=== PATIENT | male | born 1955 | race Caucasian/White ===

== ENCOUNTER 2019-04-04 07:17 | Inpatient (IN) | payer OTHER ==
[~2019-04-04] VITALS: Ht 170.2 cm; Wt 74.3 kg
[2019-04-04 07:23] VITALS: BP 146/85
[2019-04-04] MEDS ORDERED: PROTONIX40 M1 PO (07:29)
[2019-04-04] MEDS ORDERED: AMLODIPINE BESY10 MG PO (07:29)
[2019-04-04] MEDS ORDERED: ACCUPRIL40 MG PO (07:29)
[2019-04-04] MEDS ORDERED: FLOMAX0.4 MG PO (07:29)
[2019-04-04] MEDS ORDERED: ZANTAC 150MG T150 MG (07:30)
[2019-04-04] MEDS ORDERED: PRESSOR VISION PO (07:30)
[2019-04-04] MEDS ORDERED: XANAX1 MG PO (07:30)
[2019-04-04] MEDS ORDERED: ZOCOR20 MG PO (07:30)
[2019-04-04] MEDS ORDERED: ASPIR 8181 M1 PO (07:31)
[2019-04-04] MEDS ORDERED: AREDS PO (07:31)
[2019-04-04 07:54] LABS: ABSOLUTE LYMPHOCYTES 1.1 thou/uL (0.8-5.3); ABSOLUTE MONOCYTES 1.1 thou/uL (0.0-1.2); ABSOLUTE NEUTROPHILS 12.6 thou/uL (1.6-8.1); BASOPHILS 0.2 %; EOSINOPHILS 0.3 %; HEMATOCRIT 50.6 % (42.0-52.0); HEMOGLOBIN 17.1 gm/dL (14.0-18.0); LYMPHOCYTES 7.4 %; MCH 28.6 pg (26.0-34.0); MCHC 33.9 g/dL (28.0-37.0); MCV 84.5 fL (80.0-100.0); MONOCYTES 7.3 %; MPV 7.8 fl. (7.2-11.1); NUCLEATED RBCS 0 /100WBC; PLATELET COUNT* 356 thou/uL (150-400); POLYS 84.8 %; RBC 5.99 mil/uL (4.50-6.00); RDW-CV 13.4 % (10.5-14.5); WBC 14.8 thou/uL (4.0-11.0)
[2019-04-04 08:33] LABS: ANION GAP 10 mmol/L (7-16); BUN 32 mg/dL (7-18); CALCIUM 9.7 mg/dL (8.5-10.1); CHLORIDE 96 mmol/L (98-107); CO2 29 mmol/L (21-32); CREATININE 1.2 mg/dL (0.6-1.3); GLUCOSE 158 mg/dL (70-99); POTASSIUM 4.2 mmol/L (3.5-5.1); SODIUM 135 mmol/L (136-145)
[2019-04-04 08:44] LABS: ALBUMIN 4.5 g/dL (3.4-5.0); ALKALINE PHOSPHATASE 49 U/L (46-116); LIPASE 250 U/L (73-393); SGOT 27 U/L (15-37); SGPT 78 U/L (30-65); TOTAL BILIRUBIN 1.7 mg/dL (<0.1-1.0); TOTAL PROTEIN 7.8 g/dL (6.4-8.2); TROPONIN-I LEVEL <0.06 ng/mL (<0.06)
[2019-04-04 09:55] LABS: URINE BILIRUBIN NEGATIVE (Negative); URINE BLOOD 1+ (Negative); URINE CLARITY CLEAR; URINE COLOR YELLOW; URINE GLUCOSE-RANDOM NEGATIVE (Negative); URINE KETONES 1+ (Negative); URINE LEUKOCYTES-REFLEX NEGATIVE (Negative); URINE NITRITE-REFLEX NEGATIVE (Negative); URINE PROTEIN NEGATIVE (Negative); URINE SPECIFIC GRAVITY 1.015 (1.005-1.030); URINE UROBILINOGEN 0.2 E.U./dl (0.2-1.0)
[2019-04-04 10:01] LABS: BACTERIA-REFLEX 1-9 Few /HPF (None Seen); MUCUS 4-6 Moderate strn/LPF (None Seen); SQUAMOUS 0-3 Few /LPF (0-3); URINE RBC 3-10 Few /HPF (0-2); URINE WBC-REFLEX 0-5 Rare /HPF (0-5)
[2019-04-04 10:02] LABS: CASTS None Seen /LPF (None Seen); CRYSTALS None Seen /LPF (None Seen)
--- NOTE | 2019-04-04 10:39 | NUR ---
REPORT GIVEN TO JUDY CHARLES WHO IS TO ASSUME PT CARE INPATIENT NURSE.
[2019-04-04 10:40] VITALS: BP 128/77
[2019-04-04 10:45] VITALS: BP 141/74
--- NOTE | 2019-04-04 12:05 | EKG ---
[place] [address] ELECTROCARDIOGRAM REPORT Name: ALEXIS CARLIN Room: [address] ADM IN R.#: [id number] Admission: 04/04/19 Attend Phys: Melissa Sánchez MD Discharge: Date of : 53 Report #: [id number] THIS REPORT FOR: //name// ED Test Date: 2019-04-04 Test Time: 08:06:51 Pat Name: ALEXIS CARLIN Department: Room: [facility] Gender: M Director Weights And Measures: : 1955 Requested By: Obdulio Miller Order Number: [id number] MD: Toan Mayberry Measurements Intervals [place] Rate: 77 P: 6 AK: 137 QRS: -16 QRSD: 97 T: 27 QT: 402 QTc: 455 Interpretive Statements Sinus rhythm Probable left atrial enlargement Inferior infarct, old Compared to ECG 10/10/2008 20:03:39 No significant changes Electronically Signed On 04-04-2019 12:04:54 CDT by Toan Mayberry [email or web address] <ELECTRONICALLY SIGNED> By: Toan Mayberry MD, [facility] 04/04/19 1204 08 5 Toan Mayberry MD, [facility] /EPI
[2019-04-04 16:00] VITALS: BP 120/67
--- NOTE | 2019-04-04 18:24 | NUR ---
PATIENT ADMITTED TO ROOM 113 THIS AM FROM ER. ALERT AND ORIENTED X 4. UP AD TIARRA. RATING RIGHT HIP/BACK PAIN AN 8/10. PRN TRAMADOL AND MORPHINE GIVEN ORDERED, GOOD RELIEF NOTED. NO SKIN BREAKDOWN. IVF INFUSING. SURGERY CONSULTED, DR. CUEVAS SAW PATIENT THIS AFTERNOON. PATIENT REMAINS NPO EXCEPT SIPS WITH MEDS. ABD AND CXR TOMORROW. ORIENTED TO CALL LIGHT. CALL LIGHT WITHIN REACH, WILL CONTINUE TO MONITOR.
[2019-04-04 21:30] VITALS: BP 136/70
[2019-04-05 04:21] LABS: ABSOLUTE EOSINOPHILS 0.1 thou/uL (0.0-0.7); ABSOLUTE LYMPHOCYTES 1.3 thou/uL (0.8-5.3); ABSOLUTE MONOCYTES 0.8 thou/uL (0.0-1.2); BASOPHILS 0.3 %; EOSINOPHILS 1.1 %; HEMATOCRIT 42.3 % (42.0-52.0); LYMPHOCYTES 15.6 %; MCH 28.8 pg (26.0-34.0); MCHC 33.7 g/dL (28.0-37.0); MCV 85.4 fL (80.0-100.0); MONOCYTES 10.2 %; MPV 7.6 fl. (7.2-11.1); NUCLEATED RBCS 0 /100WBC; PLATELET COUNT* 296 thou/uL (150-400); POLYS 72.8 %; RBC 4.95 mil/uL (4.50-6.00); RDW-CV 13.5 % (10.5-14.5); WBC 8.3 thou/uL (4.0-11.0)
[2019-04-05 04:25] LABS: HEMOGLOBIN 14.3 gm/dL (14.0-18.0)
--- NOTE | 2019-04-05 04:45 | NUR ---
PT ALERT AND ORIENTED. VITALS STABLE RA. MEDS GIVEN ORDERED. PRN TRAMADOL GIVEN FOR BACK/HIP PAIN PER PT REQUEST. NO NAUSEA OR VOMITING THIS SHIFT. NPO AT MIDNIGHT. HOURLY ROUNDING COMPLETED. WILL CONTINUE TO MONITOR.
[2019-04-05 05:15] LABS: ALBUMIN 3.4 g/dL (3.4-5.0); CALCIUM 8.1 mg/dL (8.5-10.1); CREATININE 0.8 mg/dL (0.6-1.3); MAGNESIUM 2.2 mg/dL (1.8-2.4); POTASSIUM 3.8 mmol/L (3.5-5.1); TOTAL BILIRUBIN 1.1 mg/dL (<0.1-1.0); TOTAL PROTEIN 6.1 g/dL (6.4-8.2)
[2019-04-05 08:50] VITALS: BP 144/72
--- NOTE | 2019-04-05 14:34 | NUR ---
INITIAL ASSESSMENT: Pt evaluated for d/c planning needs. Reviewed chart. Pt is alert and oriented. Pt lives in house and was independent with ADL's prior to admission to the hospital. Pt has shower bench, and no other DME. pt has not had home health in the past. Pt plans on returning home on d/c from hospital. Will remain available to assist as needed.
[2019-04-05 16:30] VITALS: BP 124/71
--- NOTE | 2019-04-05 19:00 | NUR ---
PATIENT PLEASANT AND COOPERATIVE THIS SHIFT. PATIENT STATES HAVING A FORMED SM BM THIS AM AND 2 MORE LIQUID STOOLS THIS PM. INDEP IN RM, STEADY GAIT. IV FLUIDS INFUSING W/O DIFF. CONTINUED RT HIP/BACK PAIN. SEE NOV. NPO X MEDS THRU SHIFT.
[2019-04-05 20:33] VITALS: BP 131/75
[2019-04-06 04:07] LABS: CALCIUM 8.2 mg/dL (8.5-10.1); CREATININE 0.8 mg/dL (0.6-1.3); POTASSIUM 3.7 mmol/L (3.5-5.1)
--- NOTE | 2019-04-06 05:45 | NUR ---
PT SLEPT OFF AND ON OVERNIGHT. REQUESTING PAIN MED FOR CO R LOW HIP AND BACK PAIN, WELL SLEEP AID. PO AND IV PAIN MED GIVEN WITH FAIR RESULTS. NPO EXCEPT SIPS WITH MEDS, PT ANXIOUS TO GET DIET ADVANCED. NO N/V OVERNIGHT. AM LABS, TO HAVE ABD XRAY TODAY. NO STOOLS OVERNIGHT. ABLE TO USE CALL LITE AND MAKE NEED KNOWN.RFA IVF INFUSING PER PUMP.
[2019-04-06 07:26] VITALS: BP 101/58
[2019-04-06 16:30] VITALS: BP 123/70
--- NOTE | 2019-04-06 18:43 | NUR ---
PT A&Ox4. VITALS STABLE. PAIN CONTROLLED WITH FLEXERIL AND TRAMADOL. DENIED NAUSEA. UP AD TIARRA. IV PATENT. BM TODAY. CALL LIGHT WITHIN REACH. WILL CONTINUE TO MONITOR.
[2019-04-06 19:45] VITALS: BP 115/62
[2019-04-07 04:22] LABS: CALCIUM 7.8 mg/dL (8.5-10.1); CREATININE 0.9 mg/dL (0.6-1.3); POTASSIUM 4.1 mmol/L (3.5-5.1)
--- NOTE | 2019-04-07 05:20 | NUR ---
PT SLEPT ON AND OFF THIS SHIFT. ASSESSMENT DOCUMENTED. MEDS GIVEN PER E-MAR. IV PATENT, FLUIDS INFUSING. PT STATES HE HAS HAD SEVERAL BOWEL MOVEMENTS. PAIN MEDS GIVEN PER E-MAR WITH SOME RELIEF. WILL CONTINUE WITH PLAN OF CARE.
[2019-04-07 08:45] VITALS: BP 134/76
[2019-04-07] MEDS ORDERED: GABAPENTIN 100100 MG PO (08:46)
[2019-04-07] MEDS ORDERED: CYCLOBENZAPRINE10 MG PO (08:46)
[2019-04-07 13:23] VITALS: BP 134/76
[2019-04-07 15:06] VITALS: BP 134/76
--- NOTE | 2019-04-07 15:35 | NUR ---
PATIENT DISCHARGED FROM UNIT AT 1500. ALERT AND ORIENTED X 4. VITAL SIGNS STABLE ON ROOM AIR. UP AD TIARRA IN ROOM. TOLERATING REGULAR DIET. IV DISCONTINUED. DENIES PAIN AND NAUSEA. DISCHARGE INSTRUCTIONS, MEDICATION INFORMATION, AND SCRIPTS GIVEN TO PATIENT. LEFT WITH ALL BELONGINGS.
== END 2019-04-07 15:00 | disposition home or self-care (01) | DRG 389 ==
LOC: M.ERS 07:17 → M.TBA-ER 10:08 → M.ORTHSURG 10:08
PROVIDERS: Emergency Medicine; ADMIT Family Medicine
DX: K56.699 Other intestinal obstruction unspecified as to partial versus complete obstruction (principal); J98.11 Atelectasis; G89.29 Other chronic pain; M54.9 Dorsalgia, unspecified; M25.559 Pain in unspecified hip; K21.9 Gastro-esophageal reflux disease without esophagitis; I12.9 Hypertensive chronic kidney disease with stage 1 through stage 4 chronic kidney disease, or unspecified chronic kidney disease; E78.5 Hyperlipidemia, unspecified; N40.0 Benign prostatic hyperplasia without lower urinary tract symptoms; F41.9 Anxiety disorder, unspecified; N18.2 Chronic kidney disease, stage 2 (mild); M54.16 Radiculopathy, lumbar region; M48.062 Spinal stenosis, lumbar region with neurogenic claudication; Z86.73 Personal history of transient ischemic attack (TIA), and cerebral infarction without residual deficits; Z88.8 Allergy status to other drugs, medicaments and biological substances; Z91.041 Radiographic dye allergy status; Z79.899 Other long term (current) drug therapy; Z90.49 Acquired absence of other specified parts of digestive tract; Z90.5 Acquired absence of kidney; Z87.442 Personal history of urinary calculi; Z87.891 Personal history of nicotine dependence; Z85.820 Personal history of malignant melanoma of skin

== ENCOUNTER 2019-07-29 23:26 | Emergency (ER) | payer MEDICARE, OTHER ==
[~2019-07-29] VITALS: Ht 170.2 cm; Wt 74.8 kg
[~2019-07-29 23:26] MED LIST: ACCUPRIL40 MG PO; AMLODIPINE BESY10 MG PO; AREDS PO; ASPIR 8181 M1 PO; CYCLOBENZAPRINE10 MG PO; FLOMAX0.4 MG PO; GABAPENTIN 100100 MG PO; PRESSOR VISION PO; PROTONIX40 M1 PO; XANAX1 MG PO; ZANTAC 150MG T150 MG; ZOCOR20 MG PO
[2019-07-29] MEDS ORDERED: TRAZODONE 150150 M1 PO (23:40)
[2019-07-29] MEDS ORDERED: TRAMADOL 50 MG50 MG PO (23:40)
[2019-07-30] MEDS ORDERED: HYDROCODON-ACE1 EAC8 PO (01:43)
[2019-07-30 01:49] VITALS: BP 120/78
== END 2019-07-30 01:50 | disposition home or self-care (01) ==
LOC: M.ERS 23:26
DX: G62.9 Polyneuropathy, unspecified (principal); M54.5 Low back pain; M25.551 Pain in right hip; F41.9 Anxiety disorder, unspecified; Z90.5 Acquired absence of kidney; Z91.041 Radiographic dye allergy status; Z87.442 Personal history of urinary calculi

== ENCOUNTER 2020-07-05 15:12 | Emergency (ER) | payer MEDICARE, OTHER ==
[~2020-07-05] VITALS: Ht 170.2 cm; Wt 77.1 kg
[~2020-07-05 15:12] MED LIST changes: +HYDROCODON-ACE1 EAC8 PO; +TRAMADOL 50 MG50 MG PO; +TRAZODONE 150150 M1 PO
[2020-07-05] MEDS ORDERED: CYMBALTA60 MG PO (15:28)
[2020-07-05] MEDS ORDERED: PEPCID40 MG PO (15:28)
[2020-07-05] MEDS ORDERED: NEURONTIN600 MG PO (15:28)
[2020-07-05] MEDS ORDERED: MICARDIS40 MG PO (15:28)
[2020-07-05] MEDS ORDERED: IBU800 MG PO (15:29)
[2020-07-05 16:05] LABS: CALCIUM 8.7 mg/dL (8.5-10.1); CREATININE 0.9 mg/dL (0.6-1.3); POTASSIUM 4.1 mmol/L (3.5-5.1)
[2020-07-05] MEDS ORDERED: NORCO 5-325 TA1 EAC2 PO (16:31)
[2020-07-05] MEDS ORDERED: IBUPROFEN 800800 M1 PO (16:31)
[2020-07-05] MEDS ORDERED: FLEXERIL PO (16:31)
[2020-07-05 17:25] VITALS: BP 152/82
== END 2020-07-05 17:15 | disposition home or self-care (01) ==
LOC: M.ERS 15:12
PROVIDERS: Emergency Medicine Emergency Medical Services
DX: M54.9 Dorsalgia, unspecified (principal); M79.671 Pain in right foot; M79.651 Pain in right thigh; M79.604 Pain in right leg; M79.672 Pain in left foot; R09.89 Other specified symptoms and signs involving the circulatory and respiratory systems; Z87.442 Personal history of urinary calculi; Z79.899 Other long term (current) drug therapy; Z91.041 Radiographic dye allergy status

== ENCOUNTER 2021-07-02 14:58 | Inpatient (IN) | payer MEDICARE, OTHER ==
[~2021-07-02] VITALS: Ht 170.2 cm; Wt 77.1 kg
[~2021-07-02 14:58] MED LIST changes: +CYMBALTA60 MG PO; +FLEXERIL PO; +IBU800 MG PO; +IBUPROFEN 800800 M1 PO; +MICARDIS40 MG PO; +NEURONTIN600 MG PO; +NORCO 5-325 TA1 EAC2 PO; +PEPCID40 MG PO; -TRAZODONE 150150 M1 PO; +TRAZODONE HCL50 MG PO
[2021-07-02 15:04] VITALS: BP 163/99
[2021-07-02] MEDS ORDERED: TRAMADOL 50 MG50 MG PO (15:08)
[2021-07-02] MEDS ORDERED: [UNRECOGNIZED DRUG - OTHER] (15:08)
[2021-07-02 17:40] LABS: ABSOLUTE LYMPHOCYTES 0.6 thou/uL (0.8-5.3); ABSOLUTE MONOCYTES 0.7 thou/uL (0.0-1.2); ABSOLUTE NEUTROPHILS 7.1 thou/uL (1.6-8.1); BASOPHILS 0.4 %; EOSINOPHILS 0.5 %; HEMATOCRIT 44.9 % (42.0-52.0); HEMOGLOBIN 15.1 gm/dL (14.0-18.0); MCH 28.4 pg (26.0-34.0); MCHC 33.6 g/dL (28.0-37.0); MCV 84.7 fL (80.0-100.0); MONOCYTES 8.2 %; MPV 7.5 fl. (7.2-11.1); NUCLEATED RBCS 0 /100WBC; PLATELET COUNT* 329 thou/uL (150-400); POLYS 83.9 %; WBC 8.4 thou/uL (4.0-11.0)
[2021-07-02 17:49] LABS: CALCIUM 9.3 mg/dL (8.5-10.1); CREATININE 0.9 mg/dL (0.6-1.3); POTASSIUM 4.5 mmol/L (3.5-5.1)
[2021-07-02 17:54] LABS: ALBUMIN 4.1 g/dL (3.4-5.0); TOTAL BILIRUBIN 1.1 mg/dL (<0.1-1.0); TOTAL PROTEIN 7.7 g/dL (6.4-8.2)
[2021-07-02 22:32] VITALS: BP 151/68
[2021-07-02 23:30] VITALS: BP 151/78
[2021-07-03 04:27] LABS: ABSOLUTE EOSINOPHILS 0.1 thou/uL (0.0-0.7); ABSOLUTE LYMPHOCYTES 0.7 thou/uL (0.8-5.3); ABSOLUTE MONOCYTES 0.8 thou/uL (0.0-1.2); ABSOLUTE NEUTROPHILS 5.7 thou/uL (1.6-8.1); BASOPHILS 0.2 %; EOSINOPHILS 1.1 %; HEMATOCRIT 39.7 % (42.0-52.0); HEMOGLOBIN 13.3 gm/dL (14.0-18.0); LYMPHOCYTES 10.2 %; MCH 28.7 pg (26.0-34.0); MCHC 33.5 g/dL (28.0-37.0); MCV 85.5 fL (80.0-100.0); MONOCYTES 10.7 %; MPV 7.4 fl. (7.2-11.1); NUCLEATED RBCS 0 /100WBC; PLATELET COUNT* 290 thou/uL (150-400); POLYS 77.8 %; RBC 4.64 mil/uL (4.50-6.00); WBC 7.3 thou/uL (4.0-11.0)
[2021-07-03 05:02] LABS: ALBUMIN 3.4 g/dL (3.4-5.0); CREATININE 0.8 mg/dL (0.6-1.3); TOTAL PROTEIN 6.3 g/dL (6.4-8.2)
[2021-07-03 05:03] LABS: POTASSIUM 3.4 mmol/L (3.5-5.1)
[2021-07-03 08:49] VITALS: BP 175/93
--- NOTE | 2021-07-03 11:09 | EKG ---
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 : 1955 Requested By: Karla Lr Order Number: [id number] MD: Toan Mayberry Measurements Intervals [place] Rate: 85 P: 53 CT: 132 QRS: -21 QRSD: 95 T: 36 QT: 369 QTc: 439 Interpretive Statements Sinus rhythm RSR' in V1 or V2, probably normal variant Inferior infarct, old Compared to ECG 04/04/2019 08:06:51 Myocardial infarct finding still present Electronically Signed On 07-03-2021 11:08:55 CDT by Toan Mayberry [email or web address] <ELECTRONICALLY SIGNED> By: Toan Mayberry MD, FAC 07/03/21 1108 1659 1659 Toan Mayberry MD, [facility] /EPI
[2021-07-03 12:05] VITALS: BP 156/87
[2021-07-03 17:30] VITALS: BP 161/82
[2021-07-03 21:00] VITALS: BP 166/84
[2021-07-04 08:00] VITALS: BP 175/85
[2021-07-04 08:06] LABS: ABSOLUTE LYMPHOCYTES 0.8 thou/uL (0.8-5.3); ABSOLUTE MONOCYTES 0.6 thou/uL (0.0-1.2); ABSOLUTE NEUTROPHILS 5.7 thou/uL (1.6-8.1); BASOPHILS 0.4 %; EOSINOPHILS 0.3 %; HEMATOCRIT 39.1 % (42.0-52.0); HEMOGLOBIN 13.3 gm/dL (14.0-18.0); LYMPHOCYTES 11.9 %; MCH 28.5 pg (26.0-34.0); MCHC 33.9 g/dL (28.0-37.0); MCV 84.2 fL (80.0-100.0); MPV 7.6 fl. (7.2-11.1); NUCLEATED RBCS 0 /100WBC; PLATELET COUNT* 294 thou/uL (150-400); POLYS 79.4 %; RBC 4.65 mil/uL (4.50-6.00); RDW-CV 13.5 % (10.5-14.5); WBC 7.1 thou/uL (4.0-11.0)
[2021-07-04 08:19] LABS: CALCIUM 8.3 mg/dL (8.5-10.1); CREATININE 0.7 mg/dL (0.6-1.3); MAGNESIUM 2.1 mg/dL (1.8-2.4); PHOSPHORUS* 2.8 mg/dL (2.5-4.9); POTASSIUM 3.1 mmol/L (3.5-5.1)
[2021-07-04 11:30] VITALS: BP 150/77
[2021-07-04 16:00] VITALS: BP 167/84
[2021-07-04 20:00] VITALS: BP 157/82
[2021-07-04 23:00] VITALS: BP 150/77
[2021-07-05 04:34] LABS: CALCIUM 8.2 mg/dL (8.5-10.1); CREATININE 0.8 mg/dL (0.6-1.3); MAGNESIUM 2.2 mg/dL (1.8-2.4); PHOSPHORUS* 2.4 mg/dL (2.5-4.9); POTASSIUM 3.2 mmol/L (3.5-5.1)
[2021-07-05 05:37] LABS: ABSOLUTE BASOPHILS 0.1 thou/uL (0.0-0.2); ABSOLUTE LYMPHOCYTES 0.9 thou/uL (0.8-5.3); ABSOLUTE MONOCYTES 0.9 thou/uL (0.0-1.2); BASOPHILS 0.8 %; EOSINOPHILS 0.5 %; HEMOGLOBIN 13.1 gm/dL (14.0-18.0); LYMPHOCYTES 10.3 %; MCH 28.8 pg (26.0-34.0); MCHC 34.5 g/dL (28.0-37.0); MCV 83.5 fL (80.0-100.0); MONOCYTES 9.9 %; MPV 7.5 fl. (7.2-11.1); NUCLEATED RBCS 0 /100WBC; PLATELET COUNT* 291 thou/uL (150-400); POLYS 78.5 %; RBC 4.54 mil/uL (4.50-6.00); RDW-CV 13.3 % (10.5-14.5)
[2021-07-05 20:22] VITALS: BP 152/81
[2021-07-06 05:03] LABS: ABSOLUTE BASOPHILS 0.1 thou/uL (0.0-0.2); ABSOLUTE EOSINOPHILS 0.4 thou/uL (0.0-0.7); ABSOLUTE LYMPHOCYTES 1.2 thou/uL (0.8-5.3); ABSOLUTE MONOCYTES 0.7 thou/uL (0.0-1.2); BASOPHILS 0.8 %; EOSINOPHILS 4.4 %; HEMATOCRIT 39.8 % (42.0-52.0); HEMOGLOBIN 13.6 gm/dL (14.0-18.0); LYMPHOCYTES 12.5 %; MCH 28.6 pg (26.0-34.0); MCHC 34.1 g/dL (28.0-37.0); MONOCYTES 7.7 %; MPV 7.6 fl. (7.2-11.1); NUCLEATED RBCS 0 /100WBC; PLATELET COUNT* 283 thou/uL (150-400); POLYS 74.6 %; RBC 4.74 mil/uL (4.50-6.00); RDW-CV 13.7 % (10.5-14.5); WBC 9.4 thou/uL (4.0-11.0)
[2021-07-06 05:15] LABS: ALBUMIN 3.2 g/dL (3.4-5.0); CREATININE 0.7 mg/dL (0.6-1.3); POTASSIUM 3.4 mmol/L (3.5-5.1); TOTAL BILIRUBIN 1.3 mg/dL (<0.1-1.0); TOTAL PROTEIN 6.2 g/dL (6.4-8.2)
[2021-07-06 08:00] VITALS: BP 157/91
[2021-07-06 16:00] VITALS: BP 160/90
[2021-07-06 20:06] VITALS: BP 146/80
[2021-07-07 04:57] LABS: ABSOLUTE BASOPHILS 0.1 thou/uL (0.0-0.2); ABSOLUTE EOSINOPHILS 0.4 thou/uL (0.0-0.7); ABSOLUTE LYMPHOCYTES 1.3 thou/uL (0.8-5.3); ABSOLUTE MONOCYTES 0.7 thou/uL (0.0-1.2); ABSOLUTE NEUTROPHILS 6.3 thou/uL (1.6-8.1); BASOPHILS 0.6 %; EOSINOPHILS 4.5 %; HEMATOCRIT 39.9 % (42.0-52.0); HEMOGLOBIN 13.4 gm/dL (14.0-18.0); LYMPHOCYTES 14.9 %; MCH 28.2 pg (26.0-34.0); MCHC 33.6 g/dL (28.0-37.0); MCV 84.1 fL (80.0-100.0); MONOCYTES 8.1 %; MPV 7.4 fl. (7.2-11.1); NUCLEATED RBCS 0 /100WBC; PLATELET COUNT* 264 thou/uL (150-400); POLYS 71.9 %; RBC 4.74 mil/uL (4.50-6.00); RDW-CV 13.6 % (10.5-14.5); WBC 8.8 thou/uL (4.0-11.0)
[2021-07-07 05:20] LABS: ALBUMIN 3.2 g/dL (3.4-5.0); CALCIUM 8.2 mg/dL (8.5-10.1); CREATININE 0.9 mg/dL (0.6-1.3); MAGNESIUM 1.9 mg/dL (1.8-2.4); PHOSPHORUS* 3.4 mg/dL (2.5-4.9); POTASSIUM 3.5 mmol/L (3.5-5.1); TOTAL PROTEIN 6.1 g/dL (6.4-8.2)
[2021-07-07 08:05] VITALS: BP 148/78
[2021-07-07 13:12] VITALS: BP 148/78
[2021-07-07 13:14] VITALS: BP 148/78
== END 2021-07-07 14:14 | disposition home or self-care (01) | DRG 389 ==
LOC: M.ERS 14:58 → M.TBA-ER 20:04 → M.2W 20:04 → M.3W 07-05 16:46
PROVIDERS: Physician Assistant; Student in an Organized Health Care Education/Training Program; Surgery; ADMIT Internal Medicine; ATTEND Internal Medicine
PROC: 0D9670Z Drainage of Stomach with Drainage Device, Via Natural or Artificial Opening (ICD-10-PCS; principal; 2021-07-05)
DX: K56.609 Unspecified intestinal obstruction, unspecified as to partial versus complete obstruction (principal); E44.1 Mild protein-calorie malnutrition; F41.9 Anxiety disorder, unspecified; N40.0 Benign prostatic hyperplasia without lower urinary tract symptoms; F32.9 Major depressive disorder, single episode, unspecified; I10 Essential (primary) hypertension; E86.0 Dehydration; M19.90 Unspecified osteoarthritis, unspecified site; M54.16 Radiculopathy, lumbar region; Z20.822 Contact with and (suspected) exposure to COVID-19; Z87.442 Personal history of urinary calculi; Z90.5 Acquired absence of kidney; Z91.041 Radiographic dye allergy status; Z87.891 Personal history of nicotine dependence; Z90.49 Acquired absence of other specified parts of digestive tract; Z68.26 Body mass index [BMI] 26.0-26.9, adult

== ENCOUNTER 2021-10-03 20:01 | Observation (INO) | payer MEDICARE, OTHER ==
[~2021-10-03] VITALS: Ht 170.2 cm; Wt 77.1 kg
--- NOTE | ~2021-10-03 | CON ---
[address] [address] CONSULTATION Name: ALEXIS CARLIN Room: [address] M.R.#: [id number] Admission: 10/03/21 Attend Phys: Esequiel Leonardo MD Discharge: Date of : 53 Report #: [id number] THIS REPORT FOR: cc: Gustavo Cox MD, Bruce D. MD Khosla, Parveen K. MD ~ DATE OF CONSULTATION: 10/04/2021 HISTORY OF PRESENT ILLNESS: A 66-year-old male patient who was evaluated by me for the possibility of TIA or stroke. The patient says that he came to Emergency Room because his blood pressure was high. He says he did not have any focal neurological deficit. However, during the examination, he indicated that the PA as well as Dr. Mcguire, the Emergency Room physician noted slight weakness on the left side of the face. He is not having any headache or any other visual disturbances. He feels back to his baseline. REVIEW OF SYSTEMS: Indicate that he does have a history of hypertension, also kidney stone, herniated disk, macular degeneration, anxiety, nephrectomy, testicular problem, melanoma, some back problem. He said that one time and that was several years ago he was having some chest symptoms, did the workup. The workup was negative and their conclusion was that it was probably because of anxiety. He does have significant amount of anxiety. Presently, he denies any ENT, cardiac, respiratory, GI, , musculoskeletal, constitutional, dermatological, hematological, psychiatric, throat, allergic symptom associated with present symptomatology. PAST MEDICAL HISTORY: Negative for any stroke. MEDICATIONS: He is on aspirin at home. FAMILY HISTORY: Negative for early age stroke. SOCIAL HISTORY: He does not smoke or drink alcohol. PHYSICAL EXAMINATION: NEUROLOGIC: The patient's examination indicate he is alert and responsive, able to follow simple and complex command. His speech looks intact. He thinks his mentation and memory is at his baseline. His cranial nerve examination 2-12 looks mostly unremarkable. Neuromuscular examination as checked for strength, sensation, reflexes and tone was mostly symmetrical, but there was some asymmetry of the knee jerk and strength in the legs, which is going on since his surgery of the back and is unchanged. He is a well-developed individual. His hearing and vision looks adequate. CARDIAC: [place] [address] CONSULTATION Name: ALEXIS CARLIN [address] [id number] Admission: 10/03/21 Attend Phys: Esequiel Leonardo MD Discharge: Date of : 53 Report #: [id number] No respiratory difficulty was noticed. No edema, no thyroid mass. No meningeal sign. No carotid bruit. Pulses are palpable. LABORATORY DATA: White count is 5.6, GFR is 96. IMPRESSION: This patient has hypertension and left sided weakness was noticed on the face, which was minor because the patient has not noticed that. I do not see any pronounced weakness, it may have resolved. Nursing seismic prospecting supervisor talked to me and they are holding multiple patients in the emergency room and asked me to see if we can discharge this patient somehow. I talked to the patient and I told him his options in that regard. He will also like to go home. HE IS ALLERGIC TO THE DYE. Therefore, I ordered an MRI and MRA in this patient and this is because the patient needs to be discharged and we need some imaging study before we discharge because of question of facial weakness noticed there. She said she will herself arrange this MRI and MRA. If MRI and MRA are normal, then from neurological perspective, he can be dismissed and follow up in our office for further testing and alerted family doctor for his antihypertensive. If they are abnormal, then please call me back. Thank you very much for this referral and if you have any questions, please feel free to contact me. I spent more than 50 minutes of time taking care of this patient today and majority was spent counseling and arranging all the workup. By: 1153 1222Palex Stevens MD /greg
[~2021-10-03 20:01] MED LIST changes: +[UNRECOGNIZED DRUG - OTHER]
[2021-10-03 20:07] VITALS: BP 181/101
[2021-10-03] MEDS ORDERED: OXYBUTYNIN 5 MG5 M2 PO (20:13)
[2021-10-03] MEDS ORDERED: FLOMAX0.4 MG PO (20:13)
[2021-10-03] MEDS ORDERED: METFORMIN HCL500 M3 PO (20:14)
[2021-10-03] MEDS ORDERED: ASA81BEC PO (20:14)
[2021-10-03] MEDS ORDERED: PROSCAR 5MG TABL5 M1 PO (20:15)
[2021-10-03 20:39] LABS: ABSOLUTE EOSINOPHILS 0.4 thou/uL (0.0-0.7); ABSOLUTE LYMPHOCYTES 0.9 thou/uL (0.8-5.3); ABSOLUTE MONOCYTES 0.5 thou/uL (0.0-1.2); ABSOLUTE NEUTROPHILS 3.9 thou/uL (1.6-8.1); BASOPHILS 0.5 %; EOSINOPHILS 6.3 %; HEMATOCRIT 41.8 % (42.0-52.0); HEMOGLOBIN 13.9 gm/dL (14.0-18.0); LYMPHOCYTES 15.7 %; MCHC 33.3 g/dL (28.0-37.0); MCV 84.3 fL (80.0-100.0); MONOCYTES 8.7 %; MPV 7.4 fl. (7.2-11.1); NUCLEATED RBCS 0 /100WBC; PLATELET COUNT* 283 thou/uL (150-400); POLYS 68.8 %; RBC 4.95 mil/uL (4.50-6.00); RDW-CV 14.1 % (10.5-14.5); WBC 5.6 thou/uL (4.0-11.0)
[2021-10-03 20:59] LABS: CALCIUM 8.7 mg/dL (8.5-10.1); CREATININE 0.7 mg/dL (0.6-1.3)
[2021-10-03 21:03] LABS: TOTAL BILIRUBIN 0.8 mg/dL (<0.1-1.0)
[2021-10-03 21:42] LABS: URINE BILIRUBIN NEGATIVE (Negative); URINE BLOOD TRACE (Negative); URINE CLARITY CLEAR; URINE COLOR YELLOW; URINE GLUCOSE-RANDOM NEGATIVE (Negative); URINE KETONES NEGATIVE (Negative); URINE LEUKOCYTES-REFLEX NEGATIVE (Negative); URINE NITRITE-REFLEX NEGATIVE (Negative); URINE PROTEIN NEGATIVE (Negative); URINE SPECIFIC GRAVITY 1.015 (1.005-1.030); URINE UROBILINOGEN 0.2 E.U./dl (0.2-1.0)
[2021-10-04 01:21] VITALS: BP 152/77
[2021-10-04 05:29] VITALS: BP 158/77
[2021-10-04 09:30] VITALS: BP 128/78
[2021-10-04 10:18] LABS: AMP/METHAMP Negative (Negative); BARBITURATES Negative (Negative); BENZODIAZEPINES POSITIVE (Negative); COCAINE Negative (Negative); METHADONE Negative (Negative); OPIATES Negative (Negative); PCP Negative (Negative); THC Negative (Negative)
[2021-10-04 10:26] LABS: ALBUMIN 3.9 g/dL (3.4-5.0); CALCIUM 8.7 mg/dL (8.5-10.1); CREATININE 0.8 mg/dL (0.6-1.3); POTASSIUM 4.2 mmol/L (3.5-5.1); TOTAL BILIRUBIN 0.8 mg/dL (<0.1-1.0); TOTAL PROTEIN 7.1 g/dL (6.4-8.2)
--- NOTE | 2021-10-04 11:18 | EKG ---
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: TIANNA : 1955 Requested By: Lea Martins Order Number: [id number] MD: Toan Mayberry Measurements Intervals [place] Rate: 72 P: 26 AR: 134 QRS: -24 QRSD: 90 T: 21 QT: 399 QTc: 437 Interpretive Statements Sinus rhythm poor r wave progression Probable left atrial enlargement Inferior infarct, old Compared to ECG 07/02/2021 16:59:18 No significant changes Electronically Signed On 10-04-2021 11:18:16 HOUSEKEEPER SUPERVISOR by Toan Mayberry [email or web address] <ELECTRONICALLY SIGNED> By: Toan Mayberry MD, FAC 10/04/21 1118 06 06 Toan Mayberry MD, [facility] /EPI
[2021-10-04] MEDS ORDERED: NORVASC5 MG PO (13:29)
[2021-10-04 14:29] VITALS: BP 150/89
[2021-10-04 14:46] VITALS: BP 150/89
[2021-10-04 14:47] VITALS: BP 150/89
[2021-10-05 04:05] LABS: GLYCOHEMOGLOBIN (HGB A1C) 5.8 % (4.8-5.6)
--- NOTE | 2021-10-05 09:09 | NUR ---
PLEASE NOTE PT WAS DISCHARGED FROM HOSPITAL BEFORE P.T. COULD BE INITIATED.
== END 2021-10-04 14:40 | disposition home or self-care (01) ==
LOC: M.ERS 20:01 → M.TBA-ER 21:37
PROVIDERS: Student in an Organized Health Care Education/Training Program; ADMIT Internal Medicine; ATTEND Internal Medicine
DX: I16.0 Hypertensive urgency (principal); Z20.822 Contact with and (suspected) exposure to COVID-19; G45.9 Transient cerebral ischemic attack, unspecified; F41.9 Anxiety disorder, unspecified; E78.5 Hyperlipidemia, unspecified; F32.9 Major depressive disorder, single episode, unspecified; G89.29 Other chronic pain; M54.9 Dorsalgia, unspecified; Z90.49 Acquired absence of other specified parts of digestive tract; Z87.442 Personal history of urinary calculi; Z98.890 Other specified postprocedural states; Z88.8 Allergy status to other drugs, medicaments and biological substances; Z91.048 Other nonmedicinal substance allergy status; Z79.899 Other long term (current) drug therapy